=== PATIENT | male | born 1985 | race Caucasian/White ===

== ENCOUNTER → 2019-09-11 | Outpatient (REF) | payer OTHER ==
[~2019-09-11] MED LIST: ZYPR5TAB2 PO; no home meds
[2019-09-11 17:32] LABS: BLOOD UREA NITROGEN 10 MG/DL (7-18); CALCIUM LEVEL 9.2 MG/DL (8.5-10.1); CARBON DIOXIDE LEVEL 30 MEQ/L (21-32); CHLORIDE LEVEL 106 MEQ/L (98-107); CHOLESTEROL LEVEL 211 MG/DL (<200); CHOLESTEROL RISK RATIO 4.489 (<5); CREATININE FOR GFR 1.01 MG/DL (0.70-1.30); GLOMERULAR FILTRATION RATE > 60.0 (>60); GLUCOSE, FASTING 81 MG/DL (70-100); HDL CHOLESTEROL 47 MG/DL (>40); LDL CHOLESTEROL 131 MG/DL (<100); NON-HDL-C 164 MG/DL; POTASSIUM SERUM 4.3 MEQ/L (3.5-5.1); SODIUM LEVEL 142 MEQ/L (136-145); TRIGLYCERIDES LEVEL 167 MG/DL (<150)
[2019-09-12 10:21] LABS: HEPATITIS B SURFACE ANTIBODY NEGATIVE (POSITIVE)
[2019-09-12 10:31] LABS: HEPATITIS B SURFACE ANTIGEN NEGATIVE (NEGATIVE)
[2019-09-12 10:59] LABS: HEPATITIS C VIRUS ABY INDEX 0.1 INDEX (<0.8)
[2019-09-12 11:00] LABS: HIV 1&2 SCREEN CENTAUR NEGATIVE (NEGATIVE)
== END ==
LOC: M SFHCPLAZ 14:18
DX: Z13.1 Encounter for screening for diabetes mellitus (principal); Z13.220 Encounter for screening for lipoid disorders; Z11.59 Encounter for screening for other viral diseases

== ENCOUNTER 2019-11-07 01:02 | Inpatient (IN) | payer MEDICAID, OTHER ==
[~2019-11-07] VITALS: Ht 185.4 cm; Wt 88.0 kg
[2019-11-07 01:29] LABS: HEMATOCRIT 50.2 % (42.0-52.0); MEAN CORPUSCULAR HEMOGLOBIN 31.7 pg (27.0-33.0); MEAN CORPUSCULAR HGB CONC 33.9 g/dl (32.0-36.5); MEAN CORPUSCULAR VOLUME 93.7 fl (80.0-96.0); PLATELET COUNT, AUTOMATED 211 10^3/uL (150-450); RED BLOOD COUNT 5.36 10^6/uL (4.30-6.10); WHITE BLOOD COUNT 10.7 10^3/uL (4.0-10.0)
[2019-11-07 02:01] LABS: ACETAMINOPHEN LEVEL < 2.0 UG/ML (10.0-30.0); ALBUMIN 4.1 GM/DL (3.2-5.2); ALT/SGPT 16 U/L (12-78); BILIRUBIN,DIRECT 0.3 MG/DL (0.0-0.2); BILIRUBIN,TOTAL 1.2 MG/DL (0.2-1.0); BLOOD UREA NITROGEN 13 MG/DL (7-18); CALCIUM LEVEL 8.9 MG/DL (8.5-10.1); CARBON DIOXIDE LEVEL 25 MEQ/L (21-32); CHLORIDE LEVEL 105 MEQ/L (98-107); CREATININE FOR GFR 0.98 MG/DL (0.70-1.30); ETHYL ALCOHOL (ETHANOL) < 0.003 % (0.000-0.010); GLOMERULAR FILTRATION RATE > 60.0 (>60); GLUCOSE, FASTING 101 MG/DL (70-100); POTASSIUM SERUM 3.8 MEQ/L (3.5-5.1); SODIUM LEVEL 139 MEQ/L (136-145); TOTAL PROTEIN 7.8 GM/DL (6.4-8.2)
[2019-11-07 03:20] LABS: AMPHETAMINES LEVEL URINE NEGATIVE (NEGATIVE); BARBITURATES URINE NEGATIVE (NEGATIVE); BENZODIAZEPINES URINE NEGATIVE (NEGATIVE); CANNABINOIDS URINE NEGATIVE (NEGATIVE); COCAINE METABOLITE URINE NEGATIVE (NEGATIVE); METHADONE URINE NEGATIVE (NEGATIVE); OPIATES URINE NEGATIVE (NEGATIVE); PHENCYCLIDINE URINE NEGATIVE (NEGATIVE)
[2019-11-07] MEDS ORDERED: diphenhydrAMINE 25 MG CAP PO PRN (06:30)
[2019-11-07] MEDS ORDERED: MOM 30ML SUSPENSION UDC PO PRN (06:30)
[2019-11-07] MEDS ORDERED: MAALOX 30 ML SUSP *UDC PO PRN (06:30)
[2019-11-07] MEDS: PALIPERIDONE 3 MG ER TAB (INVEGA) PO SCH ×2 (09:00→21:00)
[2019-11-07 09:59] VITALS: BP 135/74
--- NOTE | 2019-11-07 10:18 | MHHPEPDOC ---
[facility] History & Physical History and Physical DATE OF ADMISSION: Nov 07, 2019 at 06:17 New Patient Greg Kaufman MRN: N/A Date of : N/A Date of Service: 11/07/2019 Chief Complaint "..." History of Present Illness The patient, a 34-year-old man with a reported history of schizophrenia, presents psychotic to the ER where he is aggressive and is overtly psychotic upon interview in the ER. He is admitted out of abundance of caution where subsequently he had reported that he felt he had a chip in his head and hears the voice of "Vitor talking to him." After we admitted him, he was fairly irritable, upset, was not sleeping and became increasingly aggressive. He needed multiple PRN medications and large amounts of sedation in order to get him under control. When I attempted to meet with him, he was sedated and asleep due to his agitation, but appeared comfortable. The majority of the information below is derived from the patient's chart and updated as appropriate. Review Of Systems Unable to ascertain due to patient's sedation. Past Psychiatric History Has a reported history of schizophrenia, has been admitted in the past to [facility], unclear if on any current medication or linked to any outpatient treatment, last reported admission was in 2013, unclear if any suicide attempts. Allergies Please see below. Family Psychiatric History In the past, reportedly has claimed mother's brother and father had mental health problems, reported that all of them do alcohol and smoke marijuana. No history of suicide reported. Social History The patient is a never man with no children that we are aware of. He is a high school graduate. Has conviction in the past for DUI. Has been incarcerated in 2012 for 5 months. Had a significant problem of using alcohol. It is unclear where he lives at this time. Substance Abuse History Has a history of alcohol use in the past as well as marijuana. His toxicology on this presentation revealed no cannabinoids or alcohol. Medical History Unclear recent medical history. Reportedly has a history of seizures and had head trauma. Mental Status Examination General: Good hygiene Speech: Not pleasant, sedated Thought processes: Unclear MSK: Smooth and coordinated gait, no signs of tremors or involuntary orofacial movements Thought content: Unclear Abstract reasoning, and computation: Unknown Description of associations: Unknown Description of abnormal or psychotic thoughts: Unknown Judgment: Unknown Insight: Unknown Orientation: Sedated and sleepy Cognition: Sedated Recent and remote memory: Unknown Attention span and concentration: Unknown Fund of knowledge: Unknown Mood: "..." Affect: Sedated and sleepy Diagnoses Unspecified psychotic disorder. Schizophrenia versus substance-induced. Alcohol use disorder, unspecified. Cannabis use disorder, unspecified. Assessment and Plan Unspecified psychotic disorder: Start Zyprexa 10 mg nightly for psychosis. Alcohol use disorder: We will continue to monitor vital signs. No alcohol on admission for any potential protracted withdrawal. Cannabis use disorder: Unclear significance at this time. Disposition The patient will need a much longer admission likely lasting longer than 2 midnights due to his severe psychosis, agitation and inability to care for self. Problem List 1. Altered thoughts. 2. Risk for aggression. Initial Treatment Plan 1. Patient was admitted on a 9.39 legal status. 2. Complete history was obtained. 3. With patients permission, family will be contacted and database will be expanded. 4. Patients medication regimen will be reviewed and changed accordingly. 5. Patient will be provided with protected environment. 6. Patient will be treated with individual, group, and milieu therapies. 7. Patient will receive supportive psych-education. 8. Discharge planning will commence immediately. 9. Outpatient follow-up treatment will be strongly recommended. 10. The initial treatment plan will focus initially on: Estimated Length Of Stay 5 days. Time Spent 70 minutes. Sunday Vital Signs Vital Signs Date Time Temp Pulse Resp B/P (MAP) Pulse Ox O2 Delivery O2 Flow Rate FiO2 11/07/19 09:59 98.6 91 18 135/74 (94) 99 Room Air Laboratory Data 24H Labs Laboratory Tests 2 11/07/19 01:17: Nucleated Red Blood Cells % (auto) 0.0, Anion Gap 9, Glomerular Filtration Rate > 60.0, Calcium Level 8.9, Total Bilirubin 1.2H, Direct Bilirubin 0.3H, Aspartate Amino Transf (AST/SGOT) 16, Alanine Aminotransferase (ALT/SGPT) 16, Alkaline Phosphatase 118H, Total Protein 7.8, Albumin 4.1, Albumin/Globulin Ratio 1.11, Thyroid Stimulating Hormone (TSH) 1.930, Salicylates Level 2.0L, Acetaminophen Level < 2.0L, Ethyl Alcohol Level < 0.003 11/07/19 02:47: Urine Opiates Screen NEGATIVE, Urine Methadone Screen NEGATIVE, Urine Barbiturates Screen NEGATIVE, Urine Phencyclidine Screen NEGATIVE, Urine Amphetamines Screen NEGATIVE, Urine Benzodiazepines Screen NEGATIVE, Urine C ocaine Metabolite Screen NEGATIVE, Urine Cannabinoids Screen NEGATIVE CBC/BMP Laboratory Tests 11/07/19 01:17 Medications No Active Prescriptions or Reported Meds Allergies Coded Allergies: No Known Allergies (Unverified , 12/18/13) COLIN ROTHMAN DO Nov 07, 2019 10:18
[2019-11-07] MEDS ORDERED: NICOTINE 21MG/24HR 1 EA TRANSDERMAL TD ONE (11:30)
[2019-11-07] MEDS: ACETAMINOPHEN TAB 650MG DOSE (2X325MG) PO PRN (11:56)
--- NOTE | 2019-11-07 13:41 | HPEPDOC ---
General Date of Admission Nov 07, 2019 at 06:17 Date of Service: Nov 07, 2018 Chief Complaint The patient is a 34-year-old male Who presented to the emergency room after he reported having a chip at the back of his head History of Present Illness Patient is a 34-year-old male with a past medical history of seizure disorders, etc. for any of bipolar disorder and questionable skin infections who presented to the emergency room after he reported that he had a chip inserted at the back of his head. Patient was adamant that he required an MRI to figure out if he had additional chips. When questioned about the placement of these devices. He noted that he had fallen secondary to a logging accident and had developed a scalp laceration at the back of his head and since that point. A microchip was implanted into his head so that he can be monitored. Currently patient has been admitted to the inpatient mental health unit under the care of psychiatry. Hospitalist service has been consultation for medical screening evaluation. Patient has reported that he does express a mild headache but denies nausea, vomiting, shortness of breath, cough, palpitations, chest pain, constipation, ur inary discomfort or any fevers or chills within the last 2 weeks. Patient has reported some diarrhea. Patient denies any change in his appetite or his weight. Home Medications No Active Prescriptions or Reported Meds Allergies Coded Allergies: No Known Allergies (Unverified , 12/18/13) Past Medical History Medical History Reported seizure history. However, does not take any medications for many years Schizophrenia and bipolar disorder Surgical History Patient denies any prior surgeries Family History - Patient is unfamiliar with his family history Social History - Denies the use of illicit drugs; patient does report that he is an active smoker and does drink alcohol socially - Denies recent travel or sick contacts; however, he has contacted Leon proximally 6 months prior - Lives alone - Occupation; currently unemployed and looking for disability Review of Systems Other systems 10 point review of systems complete, all negative otherwise stated in HPI Vital Signs - Vitals: BP 135/74, HR 91, RR 18, Sat 99%RA, Temp 98.6F - General: Lying in bed, No acute distress, Speaking in full sentences, AAOx3 - HEENT: NC, AT, PERRLA, EOMI, no pharyngeal erythema is noted - CVS: RRR, +S1S2, - Murmurs / rubs / gallops - Lungs: Fair air entry bilaterally, No appreciable wheezing / rales / rhonchi - Abdomen: Soft, Non-distended, Non-tender - : No rashes on his scrotum is noted - Extremities: No lower extremity edema, No calf tenderness - Neuro: No focal motor or sensory deficit - Skin: Multiple skin lesions, appear scab like - no evidence of drainage or active infection Laboratory Data Labs 24H Laboratory Tests 2 11/07/19 01:17: Nucleated Red Blood Cells % (auto) 0.0, Anion Gap 9, Glomerular Filtration Rate > 60.0, Calcium Level 8.9, Total Bilirubin 1.2H, Direct Bilirubin 0.3H, Aspartate Amino Transf (AST/SGOT) 16, Alanine Aminotransferase (ALT/SGPT) 16, Alkaline Phosphatase 118H, Total Protein 7.8, Albumin 4.1, Albumin/Globulin Ratio 1.11, Thyroid Stimulating Hormone (TSH) 1.930, Salicylates Level 2.0L, Acetaminophen Level < 2.0L, Ethyl Alcohol Level < 0.003 11/07/19 02:47: Urine Opiates Screen NEGATIVE, Urine Methadone Screen NEGATIVE, Urine Barbiturates Screen NEGATIVE, Urine Phencyclidine Screen NEGATIVE, Urine Amphetamines Screen NEGATIVE, Urine Benzodiazepines Screen NEGATIVE, Urine Cocaine Metabolite Screen NEGATIVE, Urine Cannabinoids Screen NEGATIVE CBC/BMP Laboratory Tests 11/07/19 01:17 Plan / VTE VTE Prophylaxis Ordered?: Yes Plan Plan Schizophrenia and bipolar disorder - Patient has presented to the emergency room after reporting that he had a microchip placed in the back of his head - Patient has been admitted to the inpatient mental health unit under the care of psychiatry - This is currently being managed by the primary psychiatric team Reported skin infection / Pore infections - Currently, there are multiple areas on his body with small scab-like lesions; none of which appear to be actively infected - Patient is hemodynamically stable and afebrile - Mild leukocytosis is noted - Currently no antibiotics are indicated at this point History of seizures - Patient has not taken any antibiotics for several years Mild elevation of bilirubin - Patient will require outpatient follow-up with his primary care provider for further evaluation, if this does not normalize DVT prophylaxis - Continue with early ambulation Female manager of marketing was present for the duration of his history and physical examination Please reconsult hospitalist service as needed NAHUN GERARD MD Nov 07, 2019 13:41
[2019-11-07] MEDS ORDERED: LORazepam 2 MG TAB PO ONE (14:00)
[2019-11-07] MEDS ORDERED: diphenhydrAMINE 50 MG CAP PO ONE (14:00)
[2019-11-07] MEDS ORDERED: diphenhydrAMINE 50 MG CAP PO PRN (14:01)
[2019-11-08 06:24] VITALS: BP 124/73
[2019-11-08] MEDS: NICOTINE 21MG/24HR 1 EA TRANSDERMAL TD SCH ×2 (09:00→15:27)
[2019-11-08] MEDS: PALIPERIDONE 3 MG ER TAB (INVEGA) PO SCH ×2 (09:00→20:15)
[2019-11-08 15:59] VITALS: BP 110/69
[2019-11-08] MEDS: traZODone 50 MG TAB PO PRN (20:13)
[2019-11-08] MEDS: OLANZapine 10 MG TAB PO SCH (20:13)
--- NOTE | 2019-11-08 21:13 | MHIPN ---
DATE: 11/08/2019 The patient today states that he is fine. I tried to assess to see if he had any ongoing paranoid delusions but he basically denied it and really did not respond much to most of my questions. MENTAL STATUS EXAMINATION: The patient is alert but again I am not really able to assess his orientation further as he does not really fully answer my questions other than to say that his mood is fine. His affect is flat. There is no formal thought disorder noted. He did not voice any suicidal or homicidal ideations. Concentration is fair. Unable to test memory. Insight and judgment poor. Diagnoses Unspecified psychotic disorder. Schizophrenia versus substance-induced. Alcohol use disorder, unspecified. Cannabis use disorder, unspecified. TREATMENT PLAN: At this point, we will continue to monitor the patient for his ongoing paranoid delusions. Later on he did come up to me and ask me if I was the one that could order an MRI of his brain, and according to the records this is what he wants because he feels that he has a chip implanted into his brain so clearly he remains psychotic. We will continue to monitor the patient for any ongoing psychotic symptoms and continue his medications and titrate them as indicated. KEENAN
[2019-11-09 06:19] VITALS: BP 117/62
[2019-11-09] MEDS: NICOTINE 21MG/24HR 1 EA TRANSDERMAL TD SCH (08:11)
[2019-11-09] MEDS: PALIPERIDONE 3 MG ER TAB (INVEGA) PO SCH ×2 (08:11→21:00)
[2019-11-09 15:56] VITALS: BP 119/69
--- NOTE | 2019-11-09 20:18 | MHIPN ---
DATE: 11/09/2019 The patient today continues to say that he has no problems. He continues to have no insight about his illness. He is very guarded, but I suspect that he has ongoing delusions. MENTAL STATUS EXAMINATION: He is alert and oriented times three. He will respond to superficial questions but is very guarded. Eye contact is fair. There is no formal thought disorder noted. He says his mood is fine. Affect is flat. I suspect that he is still quite delusional. Concentration is fair. Memory intact. Insight and judgment poor. Diagnoses Unspecified psychotic disorder. Schizophrenia versus substance-induced. Alcohol use disorder, unspecified. Cannabis use disorder, unspecified. TREATMENT PLAN: We will continue to monitor the patient for continued psychotic symptoms and titrate medications as indicated. EDWARDOD
[2019-11-09] MEDS: OLANZapine 10 MG TAB PO SCH (20:53)
[2019-11-09] MEDS: traZODone 50 MG TAB PO PRN (20:53)
[2019-11-09] MEDS: haloperidoL 5 MG TAB PO PRN (23:13)
[2019-11-10] MEDS ORDERED: LORazepam 2 MG TAB PO ONE ×2 (00:15→02:35)
[2019-11-10] MEDS ORDERED: haloperidoL 5 MG TAB PO ONE ×2 (00:15→02:35)
[2019-11-10] MEDS ORDERED: diphenhydrAMINE 50 MG CAP PO ONE ×2 (00:15→02:35)
[2019-11-10 06:19] VITALS: BP 126/69
[2019-11-10] MEDS: NICOTINE 21MG/24HR 1 EA TRANSDERMAL TD SCH ×2 (09:00→18:53)
[2019-11-10] MEDS: PALIPERIDONE 3 MG ER TAB (INVEGA) PO SCH (09:00)
--- NOTE | 2019-11-10 10:40 | MHIPNPDOC ---
[facility] Progress Note Progress Note Inpatient Progress Note Greg Kaufman MRN: N/A Date of : N/A Date of Service: 11/10/2019 History of Present Illness The patient, a 34-year-old man with a reported history of schizophrenia, presents psychotic to the ER where he is aggressive and is overtly psychotic upon interview in the ER. He is admitted out of abundance of caution where subsequently he had reported that he felt he had a chip in his head and hears the voice of "Vitor talking to him." After we admitted him, he was fairly irritable, upset, was not sleeping and became increasingly aggressive. He needed multiple PRN medications and large amounts of sedation in order to get him under control. When I attempted to meet with him, he was sedated and asleep due to his agitation, but appeared comfortable. The majority of the information below is derived from the patient's chart and updated as appropriate. Interval History The patient is attempted to be met with today. He is very sedated from taking medications last night. He has met with briefly as he is quite tired. He still maintains that he has a "chip in his head" and that he "wants to dig it out." He has not had any agitation and has been improving in terms of his ability to interact with staff, although he is still quite isolative to his room. He has been taking the Haldol willingly but not the Invega. The patient has not been to any groups but otherwise appears to be cooperating on a basic sense with treatment. He is quite sleepy on this interview and further pushing is likely unhelpful for him. Over the previous evening, he was given medication in order to help sleep as he had been awake at night. Review Of Systems Unclear. Denies any sedation from his medications. Psychotherapy None on this visit. Vital Signs Reviewed. Mental Status Examination General: Fair hygiene. Speech: Fluid. Thought processes: Appears linear. MSK: Smooth and coordinated gait, no signs of tremors or involuntary orofacial movements Thought content: Continues to have delusion. Abstract reasoning, and computation: Impaired. Description of associations: Impaired. Description of abnormal or psychotic thoughts: Denies any suicidal or homicidal ideation. Denies any auditory or visual hallucinations. Does not appear to be responding to internal stimuli. Does not appear to be endorsing any bizarre or paranoid ideation. Judgment: Impaired. Insight: Impaired. Orientation: Sleepy, but orientated to setting. Cognition: Sleepy. Recent and remote memory: Intact Attention span and concentration: Intact Fund of knowledge: Adequate Mood: "okay" Affect: Flat with little range. Diagnoses Unspecified psychotic disorder. History of TBI. Cannabis use disorder. Assessment and Plan Unspecified psychotic disorder: Discontinue olanzapine and Invega as the patient is not taking them. Start Haldol 10 mg nightly. Disposition The patient will need a further inpatient admission in order to continue treating his psychotic symptoms to the point where he is no longer gravely disabled. Time Spent 15 minutes Sunday Vital Signs Vital Signs Date Time Temp Pulse Resp B/P (MAP) Pulse Ox O2 Delivery O2 Flow Rate FiO2 11/10/19 06:19 98.1 59 16 126/69 (88) Room Air 11/07/19 09:59 99 Current Medications Current Medications Medications (Trade) Dose Ordered Sig/Cruzito Route PRN Reason Start Time Stop Time Status Last Admin Dose Admin Acetaminophen (Tylenol Tab) 650 mg Q6HP PRN PO HEADACHE or DISCOMFORT 11/07/19 06:30 11/07/19 11:56 Al Hydrox/Mg Hydrox/Simethicone (Mylanta) 30 ml Q4HP PRN PO HEARTBURN/INDIGESTION 11/07/19 06:30 Diphenhydramine HCl (Benadryl) 50 mg BID PRN PO EPS from Haldol 11/07/19 06:30 11/07/19 14:01 DC Diphenhydramine HCl (Benadryl) 50 mg BID PRN PO EPS from Haldol 11/07/19 14:01 Haloperidol (Haldol) 5 mg Q6HP PRN PO ANXIETY/AGITATION 11/07/19 06:30 11/09/19 23:13 Home Med (Med Rec Complete!) ASDIRECTED XX 11/07/19 05:45 11/07/19 05:53 DC Magnesium Hydroxide (Milk Of Magnesia) 30 ml DAILYPRN PRN PO CONSTIPATION 11/07/19 06:30 Nicotine (Nicoderm Cq 21mg) 1 patch DAILY TD 11/08/19 09:00 11/09/19 08:11 Olanzapine (ZyPREXA) 10 mg QHS PO 11/08/19 21:00 11/09/19 20:53 Paliperidone (Invega) 3 mg BID PO 11/07/19 09:00 Trazodone HCl (Desyrel) 50 mg QHSP PRN PO INSOMNIA 11/07/19 06:30 11/09/19 20:53 Allergies Coded Allergies: No Known Allergies (Unverified , 12/18/13) COLIN ROTHMAN DO Nov 10, 2019 10:40
[2019-11-10] MEDS: traZODone 50 MG TAB PO PRN (20:52)
[2019-11-10] MEDS: ACETAMINOPHEN TAB 650MG DOSE (2X325MG) PO PRN (21:07)
[2019-11-11] MEDS ORDERED: traZODone 50 MG TAB PO ONE (00:30)
[2019-11-11] MEDS ORDERED: haloperidoL 5 MG TAB PO ONE (01:45)
[2019-11-11] MEDS ORDERED: diphenhydrAMINE 50 MG CAP PO ONE (01:45)
[2019-11-11] MEDS ORDERED: LORazepam 2 MG TAB PO ONE (01:45)
[2019-11-11] MEDS: ACETAMINOPHEN TAB 650MG DOSE (2X325MG) PO PRN ×2 (01:57→20:43)
[2019-11-11 06:43] VITALS: BP 128/73
[2019-11-11] MEDS: NICOTINE 21MG/24HR 1 EA TRANSDERMAL TD SCH (09:14)
--- NOTE | 2019-11-11 11:05 | MHIPNPDOC ---
[facility] Progress Note Progress Note Inpatient Progress Note Greg Kaufman MRN: N/A Date of : N/A Date of Service: 11/11/2019 History of Present Illness The patient, a 34-year-old man with a reported history of schizophrenia, presents psychotic to the ER where he is aggressive and is overtly psychotic upon interview in the ER. He is admitted out of abundance of caution where subsequently he had reported that he felt he had a chip in his head and hears the voice of "Vitor talking to him." After we admitted him, he was fairly irritable, upset, was not sleeping and became increasingly aggressive. He needed multiple PRN medications and large amounts of sedation in order to get him under control. When I attempted to meet with him, he was sedated and asleep due to his agitation, but appeared comfortable. The majority of the information below is derived from the patient's chart and updated as appropriate. Interval History The patient is met with today, he is much more amenable, less paranoid and is able to speak to me more at length. He is amenable to the description of schizophrenia describing that he does have times where he feels scared of others and somewhat paranoid, but he has been feeling better since he started the Mensah ldol. He reports that although he feels he has an "chip in his head" that he would have no intentions of removing it himself and that he is interested in an outpatient MRI to determine if there is something there. He appears to have some improved insight where he is less focused on the delusion and has become more amenable. He has had no behavioral problems overnight, although he does have some difficulty sleeping, which has been better addressed. He still remains isolative to his room. Review Of Systems Cardiovascular: Denies Chest pain or palpations GI: Denies Nausea, vomiting, or bowel changes Respiratory: Denies shortness of breath or cough Neuro: Denies dizziness, tremors Derm: Denies any rashes or pruritus : Denies any dysuria or urinary problems MSK: Denies any muscle tightness or stiffness Psychotherapy None on this visit. Vital Signs Reviewed. Mental Status Examination General: Well dressed with good hygiene Speech: More fluid Thought processes: Linear and logical MSK: Smooth and coordinated gait, no signs of tremors or involuntary orofacial movements Thought content: Less paranoid. Abstract reasoning, and computation: Improved. Description of associations: Improved. Description of abnormal or psychotic thoughts: Denies any suicidal or homicidal ideation. Denies any auditory or visual hallucinations. Does not appear to be responding to internal stimuli. Does not appear to be endorsing any bizarre or paranoid ideation. Judgment: Improved. Insight: Improved. Orientation: Alert and orientated 3 Cognition: Grossly normal Recent and remote memory: Intact Attention span and concentration: Intact Fund of knowledge: Adequate Mood: "okay" Affect: More euthymic. Diagnoses Unspecified psychotic disorder. History of TBI. Cannabis use disorder. Assessment and Plan Unspecified psychotic disorder: Continue Haldol 10 mg nightly. History of TBI: Recommend outpatient neuropsych testing. Cannabis use disorder: Potentially a provoking cause for his presentation. Disposition The patient will be observed for 2 more days and change of medications, potential discharge on if continues improvement. Time Spent 15 minutes [id number]. Sunday Vital Signs Vital Signs Date Time Temp Pulse Resp B/P (MAP) Pulse Ox O2 Delivery O2 Flow Rate FiO2 11/11/19 06:43 98.6 79 12 128/73 (91) Room Air 11/07/19 09:59 99 Current Medications Current Medications Medications (Trade) Dose Ordered Sig/Cruzito Route PRN Reason Start Time Stop Time Status Last Admin Dose Admin Acetaminophen (Tylenol Tab) 650 mg Q6HP PRN PO HEADACHE or DISCOMFORT 11/07/19 06:30 11/11/19 01:57 Al Hydrox/Mg Hydrox/Simethicone (Mylanta) 30 ml Q4HP PRN PO HEARTBURN/INDIGESTION 11/07/19 06:30 Diphenhydramine HCl (Benadryl) 50 mg BID PRN PO EPS from Haldol 11/07/19 06:30 11/07/19 14:01 DC Diphenhydramine HCl (Benadryl) 50 mg BID PRN PO EPS from Haldol 11/07/19 14:01 Haloperidol (Haldol) 5 mg Q6HP PRN PO ANXIETY/AGITATION 11/07/19 06:30 11/09/19 23:13 Haloperidol (Haldol) 10 mg QHS PO 11/10/19 21:00 11/10/19 20:52 Home Med (Med Rec Complete!) ASDIRECTED XX 11/07/19 05:45 11/07/19 05:53 DC Magnesium Hydroxide (Milk Of Magnesia) 30 ml DAILYPRN PRN PO CONSTIPATION 11/07/19 06:30 Nicotine (Nicoderm Cq 21mg) 1 patch DAILY TD 11/08/19 09:00 11/11/19 09:14 Olanzapine (ZyPREXA) 10 mg QHS PO 11/08/19 21:00 11/10/19 15:57 DC 11/09/19 20:53 Paliperidone (Invega) 3 mg BID PO 11/07/19 09:00 11/10/19 15:57 DC Trazodone HCl (Desyrel) 50 mg QHSP PRN PO INSOMNIA 11/07/19 06:30 11/10/19 20:52 Allergies Coded Allergies: No Known Allergies (Unverified , 12/18/13) COLIN ROTHMAN DO Nov 11, 2019 11:05
[2019-11-11 16:32] VITALS: BP 120/62
[2019-11-11] MEDS: RAMELTEON 8 MG TAB (ROZEREM) PO SCH (20:18)
[2019-11-11] MEDS: traZODone 50 MG TAB PO PRN (20:18)
[2019-11-12 06:36] VITALS: BP 132/97
[2019-11-12] MEDS: NICOTINE 21MG/24HR 1 EA TRANSDERMAL TD SCH (08:17)
--- NOTE | 2019-11-12 11:03 | MHIPNPDOC ---
[facility] Progress Note Progress Note Inpatient Progress Note Greg Kaufman MRN: N/A Date of : N/A Date of Service: 11/12/2019 History of Present Illness The patient, a 34-year-old man with a reported history of schizophrenia, presents psychotic to the ER where he is aggressive and is overtly psychotic upon interview in the ER. He is admitted out of abundance of caution where subsequently he had reported that he felt he had a chip in his head and hears the voice of "Vitor talking to him." After we admitted him, he was fairly irritable, upset, was not sleeping and became increasingly aggressive. He needed multiple PRN medications and large amounts of sedation in order to get him under control. When I attempted to meet with him, he was sedated and asleep due to his agitation, but appeared comfortable. The majority of the information below is derived from the patient's chart and updated as appropriate. Interval History The patient is met with today. He is increasingly getting better with no noted paranoid ideation today. He has been tolerating the medication well, reporting that the Rozerem is helpful for his sleep. He has had no major behavioral problems and has been attending groups, much more social on the unit, walking around. He reports he does have a history of TBI and wonders if some of his thoughts might be attributed to this. He has not made any unusual statement so far today and has been doing well overall, preparing for discharge tomorrow. Review Of Systems Cardiovascular: Denies chest pain or palpitations GI: Denies Nausea, vomiting, or bowel changes Respiratory: Denies shortness of breath or cough Neuro: Denies dizziness, tremors Derm: Denies any rashes or pruritus : Denies any dysuria or urinary problems MSK: Denies any muscle tightness or stiffness Psychotherapy None on this visit. Vital Signs Reviewed. Mental Status Examination General: Well dressed with good hygiene Speech: Spontaneous and fluid Thought processes: Linear and logical MSK: Smooth and coordinated gait, no signs of tremors or involuntary orofacial movements Thought content: Future orientated Abstract reasoning, and computation: Intact Description of associations: Intact Description of abnormal or psychotic thoughts: Denies any suicidal or homicidal ideation. Denies any auditory or visual hallucinations. Does not appear to be responding to internal stimuli. Does not appear to be endorsing any bizarre or paranoid ideation. Judgment: fair Insight: fair Orientation: Alert and orientated 3 Cognition: Grossly normal Recent and remote memory: Intact Attention span and concentration: Intact Fund of knowledge: Adequate Mood: "okay" Affect: Euthymic with a full range Diagnoses Unspecified psychotic disorder. History of TBI. Cannabis use disorder. Assessment and Plan Unspecified psychotic disorder: Continue Haldol 10 mg nightly. History of TBI: Recommend outpatient neuropsych testing. Cannabis use disorder: Potentially a provoking cause for his presentation. Disposition Discharge tomorrow. Time Spent 15 minutes [id number]. Sunday Vital Signs Vital Signs Date Time Temp Pulse Resp B/P (MAP) Pulse Ox O2 Delivery O2 Flow Rate FiO2 11/12/19 06:36 97.0 89 16 132/97 (109) 11/11/19 06:43 Room Air 11/07/19 09:59 99 Current Medications Current Medications Medications (Trade) Dose Ordered Sig/Cruzito Route PRN Reason Start Time Stop Time Status Last Admin Dose Admin Acetaminophen (Tylenol Tab) 650 mg Q6HP PRN PO HEADACHE or DISCOMFORT 11/07/19 06:30 11/11/19 20:43 Al Hydrox/Mg Hydrox/Simethicone (Mylanta) 30 ml Q4HP PRN PO HEARTBURN/INDIGESTION 11/07/19 06:30 Diphenhydramine HCl (Benadryl) 50 mg BID PRN PO EPS from Haldol 11/07/19 06:30 11/07/19 14:01 DC Diphenhydramine HCl (Benadryl) 50 mg BID PRN PO EPS from Haldol 11/07/19 14:01 Haloperidol (Haldol) 5 mg Q6HP PRN PO ANXIETY/AGITATION 11/07/19 06:30 11/09/19 23:13 Haloperidol (Haldol) 10 mg QHS PO 11/10/19 21:00 11/11/19 20:18 Home Med (Med Rec Complete!) ASDIRECTED XX 11/07/19 05:45 11/07/19 05:53 DC Magnesium Hydroxide (Milk Of Magnesia) 30 ml DAILYPRN PRN PO CONSTIPATION 11/07/19 06:30 Nicotine (Nicoderm Cq 21mg) 1 patch DAILY TD 11/08/19 09:00 11/12/19 08:17 Olanzapine (ZyPREXA) 10 mg QHS PO 11/08/19 21:00 11/10/19 15:57 DC 11/09/19 20:53 Paliperidone (Invega) 3 mg BID PO 11/07/19 09:00 11/10/19 15:57 DC Ramelteon (Rozerem) 8 mg QHS PO 11/11/19 21:00 11/11/19 20:18 Trazodone HCl (Desyrel) 50 mg QHSP PRN PO INSOMNIA 11/07/19 06:30 11/11/19 20:18 Allergies Coded Allergies: No Known Allergies (Unverified , 12/18/13) COLIN ROTHMAN DO Nov 12, 2019 11:03
[2019-11-12 16:18] VITALS: BP 112/76
[2019-11-12] MEDS: RAMELTEON 8 MG TAB (ROZEREM) PO SCH (20:09)
[2019-11-12] MEDS: traZODone 50 MG TAB PO PRN (20:10)
[2019-11-12] MEDS: ACETAMINOPHEN TAB 650MG DOSE (2X325MG) PO PRN (22:49)
[2019-11-12] MEDS: haloperidoL 5 MG TAB PO PRN (22:52)
[2019-11-13] MEDS ORDERED: traZODone 50 MG TAB PO ONE
[2019-11-13 05:49] VITALS: BP 120/72
[2019-11-13] MEDS: NICOTINE 21MG/24HR 1 EA TRANSDERMAL TD SCH (09:00)
--- NOTE | 2019-11-13 10:13 | MHDSPDOC ---
[facility] Discharge Summary Discharge Summary DATE OF ADMISSION: Nov 07, 2019 at 06:17 DATE OF DISCHARGE: 11/13/19 Discharge Greg Kaufman MRN: N/A Date of : N/A Date of Service: 11/13/2019 Diagnoses Unspecified psychotic disorder. History of TBI. Cannabis use disorder. History of Present Illness The patient, a 34-year-old man with a reported history of schizophrenia, presents psychotic to the ER where he is aggressive and is overtly psychotic upon interview in the ER. He is admitted out of abundance of caution where subsequently he had reported that he felt he had a chip in his head and hears the voice of "Vitor talking to him." After we admitted him, he was fairly irritable, upset, was not sleeping and became increasingly aggressive. He needed multiple PRN medications and large amounts of sedation in order to get him under control. When I attempted to meet with him, he was sedated and asleep due to his agitation, but appeared comfortable. The majority of the information below is derived from the patient's chart and updated as appropriate. Consultants Involved Hospitalist/PCP screening Treatment and Progress On The Unit The patient was admitted to the inpatient mental health unit, initially somewhat paranoid, agitated and was not sleeping. He has a history of TBI and cannabis use and reported history of schizophrenia. However, after some time and multiple as-needed medications, primarily Haldol, the patient began to become more insightful, more agreeable and was isolative at times to his room, however, after speaking to him and discussing with him the issues at play, he became much more amenable, social on the unit. He was observed for 2 days, continued on Haldol 10 mg nightly as well as Rozerem for his sleep patterns of which he responded to very well. He did display some mild signs of a TBI with some mildly slowed cognition, but it did not appear clinically significant. The patient had done well on the unit, became increasingly social, amenable, went to a few groups and was no longer threatening towards himself or anyone else and amenable to all staff interventions. He had requested to go. He initially, when he presented, thought that he had a "brain chip" and was quite adamant that he wanted to have it "cut out" or he would "cut it out himself." As he progressed over his admission, he became much less paranoid, much more amenable and although he did have some mild unusual belief at the end about this reported "brain chip," he reported he wanted to have an MRI, but would go to a physician for it and if the MRI did not show anything that he would not pursue it further, demonstrating a much improved insight from when he arrived. Discharge Assessment 34-year-old man with a history of reported schizophrenia, TBI and cannabis use, however, after observation on the unit, his psychosis resolved precipitously with a small amount of Haldol and Rozerem, likely indicating potentially drug induced/cannabis related paranoia. He initially presents thinking he has a "brain chip," however, after a very mild intervention his insight improved greatly where he no longer endorses the ideation very significantly. He requests to go and declines further voluntary admission. On the day of discharge, he did not meet involuntary criteria as he had been denying suicidal and homicidal ideation through his admission, his insight improved greatly to a normal mental status exam, he was cooperative with discharge, friendly, engaged on the unit and did not demonstrate any significant impairment by the time of discharge in his overall ability to function and thus was discharged in good harpreet. Mental Status Examination General: Well dressed with good hygiene Speech: Spontaneous and fluid Thought processes: Linear and logical MSK: Smooth and coordinated gait, no signs of tremors or involuntary orofacial movements Thought content: Future orientated Abstract reasoning, and computation: Intact Description of associations: Intact Description of abnormal or psychotic thoughts: Denies any suicidal or homicidal ideation. Denies any auditory or visual hallucinations. Does not appear to be responding to internal stimuli. Does not appear to be endorsing any bizarre or paranoid ideation. Judgment: fair Insight: fair Orientation: Alert and orientated 3 Cognition: Grossly normal Recent and remote memory: Intact Attention span and concentration: Intact Fund of knowledge: Adequate Mood: "okay" Affect: Euthymic with a full range Follow Up The social work team worked during the predischarge meeting in order to evaluate for further issues of lethality address them fully before discharge. They worked on safety planning with the patient's family members in order to ensure that the patient will have a safe and effective discharge. Time Spent The amount of time spent in the coordination of care for this patient was approximately 60 minutes. Vital Signs/I&Os Vital Signs Date Time Temp Pulse Resp B/P (MAP) Pulse Ox O2 Delivery O2 Flow Rate FiO2 11/13/19 05:49 98.4 80 16 120/72 (88) 11/11/19 06:43 Room Air 11/07/19 09:59 99 Medications Scheduled Haloperidol (Haloperidol) 10 Mg Tablet, 10 MG PO QHS for thoughts for 7 Days, #7 Melatonin (Melatonin) 3 Mg Tab.rapdis, 1 TAB PO QPM for sleep for 30 Days, #30 Allergies Coded Allergies: No Known Allergies (Unverified , 12/18/13) COLIN ROTHMAN DO Nov 13, 2019 10:13
[2019-11-13] MEDS ORDERED: MELA3TAB49 PO (10:27)
[2019-11-13] MEDS ORDERED: HALO10TA20 PO (10:27)
== END 2019-11-13 13:15 | disposition home or self-care (01) | DRG 751 ==
LOC: M ED 01:02 → M ED INP 06:17 → M PSY 09:35
PROVIDERS: ADMIT Psychiatry & Neurology Psychiatry; ATTEND Psychiatry & Neurology Addiction Medicine
DX: F29 Unspecified psychosis not due to a substance or known physiological condition (principal); G40.909 Epilepsy, unspecified, not intractable, without status epilepticus; F12.90 Cannabis use, unspecified, uncomplicated; Z79.899 Other long term (current) drug therapy

== ENCOUNTER 2020-01-06 12:13 | Inpatient (IN) | payer MEDICAID, OTHER ==
[~2020-01-06 12:13] MED LIST changes: +HALO10TA20 PO; +MELA3TAB49 PO
[2020-01-06] MEDS ORDERED: HALOPERIDOL 5 MG/ML VIAL (J1630) IM ONE (12:30)
[2020-01-06] MEDS ORDERED: LORazepam 2 MG/ML VIAL (J2060) IM ONE (12:30)
[2020-01-06 14:00] LABS: MEAN CORPUSCULAR HEMOGLOBIN 31.8 pg (27.0-33.0); MEAN CORPUSCULAR HGB CONC 35.4 g/dl (32.0-36.5); MEAN CORPUSCULAR VOLUME 89.7 fl (80.0-96.0); PLATELET COUNT, AUTOMATED 300 10^3/uL (150-450); RED BLOOD COUNT 5.35 10^6/uL (4.30-6.10); WHITE BLOOD COUNT 8.1 10^3/uL (4.0-10.0)
[2020-01-06 14:32] LABS: ALBUMIN 4.2 GM/DL (3.2-5.2); ALT/SGPT 25 U/L (12-78); BILIRUBIN,DIRECT 0.5 MG/DL (0.0-0.2); BILIRUBIN,TOTAL 1.7 MG/DL (0.2-1.0); BLOOD UREA NITROGEN 13 MG/DL (7-18); CALCIUM LEVEL 9.6 MG/DL (8.5-10.1); CARBON DIOXIDE LEVEL 25 MEQ/L (21-32); CHLORIDE LEVEL 104 MEQ/L (98-107); CREATININE FOR GFR 0.84 MG/DL (0.70-1.30); ETHYL ALCOHOL (ETHANOL) < 0.003 % (0.000-0.010); GLOMERULAR FILTRATION RATE > 60.0 (>60); GLUCOSE, FASTING 91 MG/DL (70-100); POTASSIUM SERUM 4.3 MEQ/L (3.5-5.1); SALICYLATE LEVEL 3.1 MG/DL (5.0-30.0); SODIUM LEVEL 136 MEQ/L (136-145); TOTAL PROTEIN 7.7 GM/DL (6.4-8.2)
[2020-01-06 14:33] LABS: ACETAMINOPHEN LEVEL < 2.0 UG/ML (10.0-30.0)
[2020-01-06 15:47] LABS: AMPHETAMINES LEVEL URINE NEGATIVE (NEGATIVE); BARBITURATES URINE NEGATIVE (NEGATIVE); BENZODIAZEPINES URINE NEGATIVE (NEGATIVE); CANNABINOIDS URINE POSITIVE (NEGATIVE); COCAINE METABOLITE URINE NEGATIVE (NEGATIVE); METHADONE URINE NEGATIVE (NEGATIVE); OPIATES URINE NEGATIVE (NEGATIVE); PHENCYCLIDINE URINE NEGATIVE (NEGATIVE)
[2020-01-06] MEDS ORDERED: SUMA100T2 PO (16:38)
[2020-01-06] MEDS ORDERED: OLANZapine 5 MG TAB PO PRN (17:45)
[2020-01-06] MEDS ORDERED: MAALOX 30 ML SUSP *UDC PO PRN (17:45)
[2020-01-06] MEDS ORDERED: ACETAMINOPHEN TAB 650MG DOSE (2X325MG) PO PRN (17:45)
[2020-01-06] MEDS ORDERED: MOM 30ML SUSPENSION UDC PO PRN (17:45)
[2020-01-06 19:22] VITALS: BP 122/77
--- NOTE | 2020-01-07 12:59 | HPEPDOC ---
General Date of Admission Jan 06, 2020 at 17:35 Date of Service: Jan 07, 2020 Chief Complaint The patient is a 34-year-old male admitted with a reason for visit of Other Schizophrenic Spectrum D/O And Tbi. Source: Patient Exam Limitations: Clinical conditions Associated Symptoms: Rash, Other (tooth problems) History of Present Illness Mr. Kaufman is a 34-year-old male who is admitted to the [facility] with diagnoses of a deteriorating mental health status 2/2 schizophrenia. The exam is somewhat limited as the patient is slightly suspicious of me. When asked Mr. Kaufman stated that he is here because of the pins in his head. He reported that they have been there for very long time now. He is also concerned as he has what he states is a 'pore infection'; he points to what appears to be a folliculitis on bilateral arms. He is also very worried that the pore infection has spread to his cheek and jaw. He mentions that someone has told him that the infection in his mouth could spread to his heart and kill him. I gather that he has very poor dentition. There are several rounded teeth on the left side of the mouth; he denies receiving any treatment or follow-up outpatient. Home Medications Scheduled PRN Sumatriptan Succinate (Sumatriptan Succinate) 100 Mg Tablet, 100 MG PO ASDI RECTED PRN for MIGRAINE, (Reported) may repeat in 2 hours; do not exceed 200 mg in 24 hours Allergies Coded Allergies: No Known Allergies (Unverified , 12/18/13) Past Medical History Medical History From the medical records, Schizophrenia and bipolar disorder Surgical History Denied Family History Unknown Social History * Smoker: Denies Alcohol: Denies Drugs: denies A-FIB/CHADSVASC A-FIB History Current/History of A-Fib/PAF?: No Current PO Anticoag Therapy: No Review of Systems Constitutional: Denies: Chills, Fever, Night Sweats Eyes: Denies: Pain, Vision change ENT: Denies: Head Aches, Ear Pain, Dysphagia Skin: Reports: Lesions, Itching; Denies: Rash Pulmonary: Denies: Dyspnea, Cough Cardiovascular: Denies: Chest Pain, Palpitations, Orthopnea, Paroxysmal Noc. D yspnea, Edema, Lt Headedness Gastrointestinal: Denies: Nausea, Vomiting, Abdominal Pain, Diarrhea Genitourinary: Denies: Dysuria, Retention Hematologic: Reports: Bleeding Excessively; Denies: Bruising Musculoskeletal: Denies: Neck Pain, Back Pain, Joint Pain, Muscle Pain, Spasms Neurological: Denies: Weakness, Numbness Psych: Denies: Thoughts of Self Harm, Thoughts of Harming Other Physical Examination General Exam: Positive: Alert, No Acute Distress, Other (appears much older than stated age) Eye Exam: Positive: PERRLA, Conjunctiva & lids normal, EOMI; Negative: Sclera icteric ENT Exam: Positive: Atraumatic, Mucous membr. moist/pink, Pharynx Normal, Tongue Midline, Other ENT (2 Damaged, decayed teeth on the left lower jaw. Patient reported that these are painful. Gums are very inflamed. Halitosis) Neck Exam: Positive: Supple; Negative: thyromegaly Chest Exam: Positive: Clear to auscultation, Normal air movement Heart Exam: Positive: Rate Normal, Regular Rhythm, Normal S1, Normal S2; Negative: Murmurs, Rubs Telemetry: Positive: No significant arrhythmia Abdomen Exam: Positive: Normal bowel sounds, Soft; Negative: Tenderness Extremity Exam: Positive: Normal pulses; Negative: Clubbing, Cyanosis, Edema Skin Exam: Positive: Nl turgor and temperature, Rash (folliculitis, sparse, bilateral arms) Neuro Exam: Positive: Normal Gait, Normal Speech, Strength at 5/5 X4 ext, Cranial Nerves 3-12 NL Psych Exam: Negative: Mood NL (very guarded, suspicious) Vital Signs Vital Signs Date Time Temp Pulse Resp B/P (MAP) Pulse Ox O2 Delivery O2 Flow Rate FiO2 01/07/20 10:22 Room Air 01/06/20 19:22 98.1 123 18 122/77 (92) 01/06/20 14:40 97 Laboratory Data Labs 24H Laboratory Tests 2 01/06/20 13:32: Nucleated Red Blood Cells % (auto) 0.0, Anion Gap 7L, Glomerular Filtration Rate > 60.0, Calcium Level 9.6, Total Bilirubin 1.7H, Direct Bilirubin 0.5H, Aspartate Amino Transf (AST/SGOT) 16, Alanine Aminotransferase (ALT/SGPT) 25, Alkaline Phosphatase 127H, Total Protein 7.7, Albumin 4.2, Albumin/Globulin Ratio 1.20, Thyroid Stimulating Hormone (TSH) 1.020, Salicylates Level 3.1L, Acetaminophen Level < 2.0L, Ethyl Alcohol Level < 0.003 01/06/20 14:48: Urine Opiates Screen NEGATIVE, Urine Methadone Screen NEGATIVE, Urine Barbitu rates Screen NEGATIVE, Urine Phencyclidine Screen NEGATIVE, Urine Amphetamines Screen NEGATIVE, Urine Benzodiazepines Screen NEGATIVE, Urine Cocaine Metabolite Screen NEGATIVE, Urine Cannabinoids Screen POSITIVEH CBC/BMP Laboratory Tests 01/06/20 13:32 Assessment/Plan Mr. Kaufman is a 34-year-old male who is admitted to the [facility] with diagnoses of a deteriorating mental health status 2/2 schizophrenia. The exam is somewhat limited as the patient is slightly suspicious of me. When asked Mr. Kaufman stated that he is here because of the pins in his head. He reported that they have been there for very long time now. He is also concerned as he has what he s tates is a 'pore infection'; he points to what appears to be a folliculitis on bilateral arms. He is also very worried that the pore infection has spread to his cheek and jaw. He mentions that someone has told him that the infection in his mouth could spread to his heart and kill him. I gather that he has very poor dentition. There are several rounded teeth on the left side of the mouth; he denies receiving any treatment or follow-up outpatient. #1. Schizophrenia. Management per psychiatry. #2. Dental caries. Signs of inflammation/infection. Start Pen-VK 4 times daily. Will need dental follow-up on discharge; coordinate with campus recruiting coordinator. #3. Folliculitis. Start mupirocin. Patient advised not to pick at the wounds. Medicine will sign off on this patient at this time. Please feel free to re- consult as needed. Plan / VTE VTE Prophylaxis Ordered?: No GILMER FROST PA-C Jan 07, 2020 12:59
[2020-01-07] MEDS: MUPIROCIN 2% OINT 22 GM TUBE TOP SCH ×2 (13:24→21:00)
[2020-01-07] MEDS: PENICILLIN V POTASSIUM 500 MG TAB PO SCH ×3 (13:56→21:53)
[2020-01-07 16:23] VITALS: BP 121/66
--- NOTE | 2020-01-07 21:12 | MHHPE ---
DATE OF ADMISSION: 01/06/2020 DATE OF SERVICE: 01/07/2020 VITAL SIGNS: Blood pressure 122/77, pulse 123, temperature 98.1. It should be noted that the vital signs are from last evening. CHIEF COMPLAINT: Says feels okay. SUBJECTIVE: He is 34 years old. He is seen in the presence of staff. He has a long history of psychosis, traumatic brain injury. He has had two hospitalizations here in the past, most recent one was in November of this year. I had seen him for the first time at the clinic yesterday, the patient was floridly psychotic, deluded, responding to internal stimuli, quite agitated, particularly verbally, please refer to my note from yesterday for details related to the circumstances of the admission, including past history. He has no social support. He was unable to indicate how he had gotten to the clinic. He has tended to walk around town, and I understand from his therapist that the patient has hitchhiked around the country. Quite paranoid that there is a "chip in his brain." He hears voices, female voice somehow attached to the chip itself. There are other voices, both male and female that he responds to. The police were called to bring him to the hospital when he was at the clinic. He went with them calmly but I understand that once he got to the hospital that he became quite agitated, was in restraints and was given Haldol 5 mg intramuscular, Ativan 2 mg intramuscular as well, and that was effective. He was sedated and less agitated. Today, he says that he slept well but does not offer any other information. He responded briefly to a couple of questions asked and says has been doing okay. PAST PSYCHIATRIC HISTORY/BACKGROUND HISTORY: Please refer to the previous summaries. He was seen by Dr. Young when he was admitted in November of this year. MENTAL STATUS EXAMINATION: He is neat. Guarded, also gives the impression that he does not wish to engage. No agitation. No psychomotor retardation as such, gives only one word answers to a couple of questions and lies down and then not answer any. Displays poverty of speech with restricted affect. At present, does not appear to be internally preoccupied. Does not indicate that he has any wishes to harm himself or anyone else. No overt delusions are elicited, but this is a function of a limited examination and his difficulties engaging. No fluctuation of consciousness. He appears alert. He is oriented to place, in that he said that he was in the hospital, also oriented to person, but I am unaware if he is oriented to time. His judgment and insight remain quite compromised. ASSESSMENT: 1. Other schizophrenia spectrum and related disorders. 2. 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 3. Traumatic brain injury. 4. Poor social supports. 5. Cannabis use disorder. He has a history of psychosis and I understand that it has been the case after the head injury about 8 years ago, details of the head injury are not very clear. He has been floridly psychotic, has no social supports that I am aware of. He has not been on any medications. His judgment and insight are quite compromised. They interfere with his ability to maintain himself, which endangers him and given his agitation, endangers others as well. PLAN: He is admitted to the inpatient psychiatric unit. He required restraints and intramuscular injections for antiagitation medications given his level of agitation, this was yesterday. We will look at obtaining collateral information. He will receive a medicine consultation if indicated. I would suggest starting him on Abilify orally and I would suggest considering an intramuscular antipsychotic, such as Abilify Maintena or Aristada, which is aripiprazole intramuscular, as the patient requires being on an antipsychotic. We also need exploring matters related to a residence and setting him up with services, including case management. I would anticipate at least a 7 day stay given the patient's intensity of symptoms and his very poor judgment. There may also be an argument for treatment over objection as well, given the patient's history and florid psychosis with a history of agitation. Further recommendations will be made depending on the clinical picture. He will be seeing the assigned psychiatrist tomorrow.
[2020-01-07] MEDS: traZODone 50 MG TAB PO PRN (21:53)
[2020-01-08 07:11] VITALS: BP 128/59
--- NOTE | 2020-01-08 09:15 | MHIPNPDOC ---
[facility] Progress Note Progress Note DATE OF SERVICE: 01/08/20 HISTORY: Per Dr. Saez: He is 34 years old. He is seen in the presence of staff. He has a long history of psychosis, traumatic brain injury. He has had two hospitalizations here in the past, most recent one was in November of this year. I had seen him for the first time at the clinic yesterday, the patient was floridly psychotic, deluded, responding to internal stimuli, quite agitated, particularly verbally, please refer to my note from yesterday for details related to the circumstances of the admission, including past history. He has no social support. He was unable to indicate how he had gotten to the clinic. He has tended to walk around town, and I understand from his therapist that the patient has hitchhiked around the country. Quite paranoid that there is a "chip in his brain." He hears voices, female voice somehow attached to the chip itself. There are other voices, both male and female that he responds to. The police were called to bring him to the hospital when he was at the clinic. He went with them calmly but I understand that once he got to the hospital that he became quite agitated, was in restraints and was given Haldol 5 mg intramuscular, Ativan 2 mg intramuscular as well, and that was effective. He was sedated and less agitated. Today, he says that he slept well but does not offer any other information. He responded briefly to a couple of questions asked and says has been doing okay. VITAL SIGNS: See below. NEW TEST RESULTS: See below. CURRENT MEDICATIONS: See below. MENTAL STATUS EXAMINATION: He is neat. Guarded, answers questions in "yes," "no" fashion. No agitation. No psychomotor retardation . Displays poverty of speech with restricted affect. At present, does not appear to be internally preoccupied. Denies wishes to harm himself or anyone else. No overt delusions are elicited. No fluctuation of consciousness. He appears alert. He is oriented to place, in that he said that he was in the hospital, also oriented to person, place, time. Denies AVH and paranoia. States he's a loner. His judgment and insight remain quite compromised. DIAGNOSES: 1. Other schizophrenia spectrum and related disorders. 2. 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 3. Traumatic brain injury. 4. Poor social supports. 5. Cannabis use disorder. ASSESSMENT:Pt seen and states that his mood is ok. States his abilify is beneficial. Speech remains non-spontaneous and answers questions in "yes," "no" fashion only. Denies he's going to groups and admits he's a loner when asked. States he slept well last night. He denies AVH and does not appear to be responding to internal stimuli. Denies paranoia today when asked. He denies SI/HI, hallucinations, delusions. States he's ready to go home soon. Pt feels safe here. MANAGEMENT PLAN: abilify 5mg qhs TIME SPENT:30 minutes. Vital Signs Vital Signs Date Time Temp Pulse Resp B/P (MAP) Pulse Ox O2 Delivery O2 Flow Rate FiO2 01/08/20 07:11 97.6 66 14 128/59 (82) 01/07/20 10:22 Room Air 01/06/20 14:40 97 Current Medications Current Medications Medications (Trade) Dose Ordered Sig/Cruzito Route PRN Reason Start Time Stop Time Status Last Admin Dose Admin Acetaminophen (Tylenol Tab) 650 mg Q6HP PRN PO HEADACHE or DISCOMFORT 01/06/20 17:45 Al Hydrox/Mg Hydrox/Simethicone (Mylanta) 30 ml Q4HP PRN PO HEARTBURN/INDIGESTION 01/06/20 17:45 Aripiprazole (AbiLIFY) 5 mg QHS PO 01/07/20 21:00 01/07/20 21:53 Home Med (Med Rec Complete!) ASDIRECTED XX 01/06/20 16:45 01/06/20 16:39 DC Magnesium Hydroxide (Milk Of Magnesia) 30 ml DAILYPRN PRN PO CONSTIPATION 01/06/20 17:45 Mupirocin (Bactroban 2% Ointment) apply to affected arms/sp... BID TOP 01/07/20 09:00 01/07/20 13:24 Olanzapine (ZyPREXA) 5 mg Q4HP PRN PO AGITATION 01/06/20 17:45 Penicillin V Potassium (Pen V K) 500 mg QID PO 01/07/20 13:00 01/07/20 21:53 Trazodone HCl (Desyrel) 50 mg QHSP PRN PO INSOMNIA 01/06/20 17:45 01/07/20 21:53 Allergies Coded Allergies: No Known Allergies (Unverified , 12/18/13) NABIL LEAVITT DO Jan 08, 2020 8:47 am
[2020-01-08] MEDS: PENICILLIN V POTASSIUM 500 MG TAB PO SCH ×4 (10:09→20:17)
[2020-01-08] MEDS: MUPIROCIN 2% OINT 22 GM TUBE TOP SCH ×2 (10:09→20:17)
[2020-01-08] MEDS: NICOTINE 21MG/24HR 1 EA TRANSDERMAL TD SCH (14:42)
[2020-01-08 16:19] VITALS: BP 134/64
[2020-01-08] MEDS: traZODone 50 MG TAB PO PRN (20:17)
[2020-01-09 06:38] VITALS: BP 137/70
[2020-01-09] MEDS: MUPIROCIN 2% OINT 22 GM TUBE TOP SCH ×2 (08:46→20:06)
[2020-01-09] MEDS: PENICILLIN V POTASSIUM 500 MG TAB PO SCH ×4 (08:47→20:06)
[2020-01-09] MEDS: NICOTINE 21MG/24HR 1 EA TRANSDERMAL TD SCH (08:47)
--- NOTE | 2020-01-09 09:06 | MHIPNPDOC ---
[facility] Progress Note Progress Note DATE OF SERVICE: 01/09/20 HISTORY: Per Dr. Saez: He is 34 years old. He is seen in the presence of staff. He has a long history of psychosis, traumatic brain injury. He has had two hospitalizations here in the past, most recent one was in November of this year. I had seen him for the first time at the clinic yesterday, the patient was floridly psychotic, deluded, responding to internal stimuli, quite agitated, particularly verbally, please refer to my note from yesterday for details related to the circumstances of the admission, including past history. He has no social support. He was unable to indicate how he had gotten to the clinic. He has tended to walk around town, and I understand from his therapist that the patient has hitchhiked around the country. Quite paranoid that there is a "chip in his brain." He hears voices, female voice somehow attached to the chip itself. There are other voices, both male and female that he responds to. The police were called to bring him to the hospital when he was at the clinic. He went with them calmly but I understand that once he got to the hospital that he became quite agitated, was in restraints and was given Haldol 5 mg intramuscular, Ativan 2 mg intramuscular as well, and that was effective. He was sedated and less agitated. Today, he says that he slept well but does not offer any other information. He responded briefly to a couple of questions asked and says has been doing okay. VITAL SIGNS: See below. NEW TEST RESULTS: See below. CURRENT MEDICATIONS: See below. MENTAL STATUS EXAMINATION: He is neat. Guarded, answers questions in more openly. No agitation. No psychomotor retardation . Improved poverty of speech. Affect is more euthymic. At present, does not appear to be internally preoccupied. Denies wishes to harm himself or anyone else. No overt delusions are elicited. No fluctuation of consciousness. He appears alert. He is oriented to place, in that he said that he was in the hospital, also oriented to person, place, time. Denies AVH and paranoia. States he's a loner. His judgment and insight are improving. DIAGNOSES: 1. Other schizophrenia spectrum and related disorders. 2. 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 3. Traumatic brain injury. 4. Poor social supports. 5. Cannabis use disorder. ASSESSMENT:Pt seen and states that his mood is "alright". States his abilify is beneficial and he's tolerating it well. Discussed starting abilify maintena with pt to aid him with med compliance and he is agreeable to taking it today. Med risks and benefits discussed. Speech is more spontaneous and answers questions more appropriately with the ability to state his thoughts and opinions openly. Denies he's going to groups as he's a loner when asked. States he slept well last night. He denies AVH and does not appear to be responding to internal stimuli. Denies paranoia. He denies SI/HI, hallucinations, delusions. States he's ready to go home soon. Pt feels safe here. MANAGEMENT PLAN: d/c oral abilify and give abilify maintena abilify maintena 400mg im today TIME SPENT:30 minutes. Vital Signs Vital Signs Date Time Temp Pulse Resp B/P (MAP) Pulse Ox O2 Delivery O2 Flow Rate FiO2 01/09/20 06:38 98.2 57 16 137/70 (92) Room Air 01/06/20 14:40 97 Current Medications Current Medications Medications (Trade) Dose Ordered Sig/Cruzito Route PRN Reason Start Time Stop Time Status Last Admin Dose Admin Acetaminophen (Tylenol Tab) 650 mg Q6HP PRN PO HEADACHE or DISCOMFORT 01/06/20 17:45 Al Hydrox/Mg Hydrox/Simethicone (Mylanta) 30 ml Q4HP PRN PO HEARTBURN/INDIGESTION 01/06/20 17:45 Aripiprazole (AbiLIFY) 5 mg QHS PO 01/07/20 21:00 01/08/20 20:17 Home Med (Med Rec Complete!) ASDIRECTED XX 01/06/20 16:45 01/06/20 16:39 DC Magnesium Hydroxide (Milk Of Magnesia) 30 ml DAILYPRN PRN PO CONSTIPATION 01/06/20 17:45 Mupirocin (Bactroban 2% Ointment) apply to affected arms/sp... BID TOP 01/07/20 09:00 01/09/20 08:46 Nicotine (Nicoderm Cq 21mg) 1 patch DAILY TD 01/08/20 09:00 01/09/20 08:47 Olanzapine (ZyPREXA) 5 mg Q4HP PRN PO AGITATION 01/06/20 17:45 Penicillin V Potassium (Pen V K) 500 mg QID PO 01/07/20 13:00 01/09/20 08:47 Trazodone HCl (Desyrel) 50 mg QHSP PRN PO INSOMNIA 01/06/20 17:45 01/08/20 20:17 Allergies Coded Allergies: No Known Allergies (Unverified , 12/18/13) NABIL LEAVITT DO Jan 09, 2020 9:06 am
[2020-01-09] MEDS ORDERED: ARIPiprazole MONOHYDRATE 400 MG INJ (ABILIFY)(J0401) IM ONE (11:00)
[2020-01-09] MEDS ORDERED: BENZOCAINE 10% 9GM TUBE (ANBESOL) TOP PRN (13:00)
[2020-01-09 16:08] VITALS: BP 115/65
[2020-01-09] MEDS: traZODone 50 MG TAB PO PRN (20:06)
[2020-01-10 05:47] VITALS: BP 94/66
[2020-01-10] MEDS: NICOTINE 21MG/24HR 1 EA TRANSDERMAL TD SCH (08:05)
[2020-01-10] MEDS: MUPIROCIN 2% OINT 22 GM TUBE TOP SCH ×2 (08:06→20:07)
[2020-01-10] MEDS: PENICILLIN V POTASSIUM 500 MG TAB PO SCH ×4 (08:06→20:07)
[2020-01-10 16:05] VITALS: BP 122/60
[2020-01-10] MEDS: QUEtiapine FUMARATE 50 MG TAB PO PRN (21:04)
[2020-01-11 06:19] VITALS: BP 123/73
[2020-01-11] MEDS: MUPIROCIN 2% OINT 22 GM TUBE TOP SCH ×2 (08:06→20:12)
[2020-01-11] MEDS: PENICILLIN V POTASSIUM 500 MG TAB PO SCH ×4 (08:06→20:12)
[2020-01-11] MEDS: NICOTINE 21MG/24HR 1 EA TRANSDERMAL TD SCH (08:07)
--- NOTE | 2020-01-11 08:49 | MHIPN ---
DATE OF SERVICE: 01/10/2020 The patient today states "all is good." However, when I asked him, he says that he is hearing voices and that he hears them constantly. I asked him the content and he said "I try to ignore them." He says that he did sleep good last night, however. MENTAL STATUS EXAM: The patient is alert and oriented times three. Eye contact is fair. Psychomotor activity is decreased. There is no formal thought disorder noted. Mood is "all good," Affect is flat. He is having auditory hallucinations. He is not suicidal or homicidal. Concentration fair. Insight and judgment is poor. DIAGNOSIS: Schizophrenia. Traumatic brain injury. TREATMENT PLAN: At this point, the patient continues to be psychotic. We will continue to monitor the patient for further clinical response to his medications. He was just given Abilify Maintena. KEENAN
[2020-01-11 16:16] VITALS: BP 119/60
[2020-01-11] MEDS: QUEtiapine FUMARATE 50 MG TAB PO PRN (20:12)
[2020-01-12 06:12] VITALS: BP 111/59
[2020-01-12] MEDS: NICOTINE 21MG/24HR 1 EA TRANSDERMAL TD SCH (08:24)
[2020-01-12] MEDS: PENICILLIN V POTASSIUM 500 MG TAB PO SCH (08:24)
[2020-01-12] MEDS: MUPIROCIN 2% OINT 22 GM TUBE TOP SCH (08:25)
[2020-01-12] MEDS ORDERED: ABIL1INJ2 IM (09:20)
[2020-01-12] MEDS ORDERED: QUET5TAB PO (09:20)
--- NOTE | 2020-01-12 09:21 | MHDSPDOC ---
[facility] Discharge Summary Discharge Summary DATE OF ADMISSION: Jan 06, 2020 at 5:35 pm DATE OF DISCHARGE: Jan 12, 2020 DISCHARGE DIAGNOSES: 1. Other schizophrenia spectrum and related disorders. 2. 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 3. Traumatic brain injury. 4. Poor social supports. 5. Cannabis use disorder. REASON FOR ADMISSION: Per Dr. Saez: He is 34 years old. He is seen in the presence of staff. He has a long history of psychosis, traumatic brain injury. He has had two hospitalizations here in the past, most recent one was in November of this year. I had seen him for the first time at the clinic yesterday, the patient was floridly psychotic, deluded, responding to internal stimuli, quite agitated, particularly verbally, please refer to my note from yesterday for details related to the circumstances of the admission, including past history. He has no social support. He was unable to indicate how he had gotten to the clinic. He has tended to walk around town, and I understand from his therapist that the patient has hitchhiked around the country. Quite paranoid that there is a "chip in his brain." He hears voices, female voice somehow attached to the chip itself. There are other voices, both male and female that he responds to. The police were called to bring him to the hospital when he was at the clinic. He went with them calmly but I understand that once he got to the hospital that he became quite agitated, was in restraints and was given Haldol 5 mg intramuscular, Ativan 2 mg intramuscular as well, and that was effective. He was sedated and less agitated. Today, he says that he slept well but does not offer any other information. He responded briefly to a couple of questions asked and says has been doing okay. CONSULTANTS INVOLVED:none TREATMENT AND PROGRESS ON THE UNIT : Pt was admitted to [facility], seen for psychiatric assessment and started on abilify 5mg qhs that he tolerated well and found beneficial so he was given abilify maintena for treatment and med compliance that he tolerated well and found beneficial. His oral abilify was discontinued once abilify maintena given. He was provided seroquel 50mg qhs prn insomnia. Pt found his medications beneficial and tolerated them well. He did not attend groups daily during his stay as he preferred to be alone due to people making him anxious. His symptoms improved with treatment. On day of discharge he denied depression, anxiety, insomnia, SI/HI, delusions. He endorsed minor AH that were non-command and "in the background" so that he could not understand what they were saying. He appeared at his baseline status. He was discharged home with follow-up at [facility] with Dr. Saez. He felt safe for discharge. DISCHARGE ASSESSMENT: Pt seen and states that his mood is "good". States his abilify maintena is beneficial and he's tolerating it well. Speech is more spontaneous and answers questions more appropriately with the ability to state his thoughts and opinions openly. Denies he's going to groups as people make him anxious and he prefers to be alone. States he slept well last night. He endorses minor AH that were non-command and "in the background" so that he could not understand what they were saying. He appeared at his baseline status. He does not appear to be responding to internal stimuli and his attention is good. Denies paranoia. He denies depression, anxiety, insomnia, SI/HI, visual hallucinations, delusions. States he feels safe to go home. States his mother lives close to him and is supportive of him and checks on him from time to time. MENTAL STATUS EXAMINATION ON DISCHARGE: He is neat. He is cooperative and answers questions in more openly. No agitation. No psychomotor retardation . Improved poverty of speech. Affect is euthymic. At present, does not appear to be internally preoccupied. Denies wishes to harm himself or anyone else. No overt delusions are elicited. No fluctuation of consciousness. He appears alert. He is oriented to place, in that he said that he was in the hospital, also oriented to person, place, time. Endorses AH that are "in the background" and he cannot make out what they're saying. He denies paranoia. He appears at his baseline status. His judgment and insight are fair to good. MEDICATIONS ON DISCHARGE: abilify maintena 400mg im qmonthly seroquel 50mg qhs prn insomnia PLAN/FOLLOWUP ARRANGEMENTS: D/c home with follow-up at [facility] with Dr. Saez. The amount of time spent in the coordination of care for this patient was approximately 30 minutes. Vital Signs/I&Os Vital Signs Date Time Temp Pulse Resp B/P (MAP) Pulse Ox O2 Delivery O2 Flow Rate FiO2 01/12/20 06:12 97.1 57 16 111/59 (76) 01/09/20 06:38 Room Air 01/06/20 14:40 97 Medications Scheduled PRN Sumatriptan Succinate (Sumatriptan Succinate) 100 Mg Tablet, 100 MG PO A SDIRECTED PRN for MIGRAINE, (Reported) may repeat in 2 hours; do not exceed 200 mg in 24 hours Allergies Coded Allergies: No Known Allergies (Unverified , 12/18/13) NABIL LEAVITT DO Jan 12, 2020 9:21 am
== END 2020-01-12 12:06 | disposition home or self-care (01) | DRG 751 ==
LOC: M ED 12:13 → M ED INP 17:35 → M PSY 18:20
PROVIDERS: ADMIT Psychiatry & Neurology Psychiatry; ATTEND Psychiatry & Neurology Psychiatry
DX: F29 Unspecified psychosis not due to a substance or known physiological condition (principal); F12.90 Cannabis use, unspecified, uncomplicated

== ENCOUNTER 2020-01-25 18:53 | Emergency (ER) | payer MEDICAID, OTHER ==
[~2020-01-25] VITALS: Ht 185.4 cm; Wt 81.8 kg
[~2020-01-25 18:53] MED LIST changes: +ABIL1INJ2 IM; +QUET5TAB PO; +SUMA100T2 PO
[2020-01-25] MEDS ORDERED: GLUCAGON FOR INJ 1 MG VIAL (J1610) IV STA ×2 (19:24→20:08)
[2020-01-25 20:10] VITALS: BP 126/75
== END 2020-01-25 20:49 | disposition home or self-care (01) ==
LOC: EDBD 18:53 → EDSEX 18:53 → M ED 18:53
DX: R09.89 Other specified symptoms and signs involving the circulatory and respiratory systems (principal); T18.198A Other foreign object in esophagus causing other injury, initial encounter; X58.XXXA Exposure to other specified factors, initial encounter; Y92.89 Other specified places as the place of occurrence of the external cause; Z79.899 Other long term (current) drug therapy; F17.210 Nicotine dependence, cigarettes, uncomplicated
CPT/HCPCS: 96374; 96376; 99284; J1610

== ENCOUNTER 2023-10-08 16:17 | Inpatient (IN) | payer MEDICAID, OTHER ==
[~2023-10-08] VITALS: Ht 185.4 cm; Wt 83.2 kg
[~2023-10-08 16:17] MED LIST changes: +QUET50TA4 PO; -QUET5TAB PO
[2023-10-08 17:33] LABS: HEMATOCRIT 51.4 % (42.0-52.0); HEMOGLOBIN 18.2 g/dl (13.5-17.5); MEAN CORPUSCULAR HEMOGLOBIN 32.1 pg (27.0-33.0); MEAN CORPUSCULAR HGB CONC 35.4 g/dl (32.0-36.5); MEAN CORPUSCULAR VOLUME 90.7 fl (80.0-96.0); PLATELET COUNT, AUTOMATED 303 10^3/uL (150-450); RED BLOOD COUNT 5.67 10^6/uL (4.30-6.10); WHITE BLOOD COUNT 6.6 10^3/uL (4.0-10.0)
[2023-10-08 18:03] LABS: ETHYL ALCOHOL (ETHANOL) < 0.003 % (0.000-0.010)
[2023-10-08 18:05] LABS: ALBUMIN 4.9 G/DL (3.2-5.2); ALKALINE PHOSPHATASE 131 U/L (46-116); ALT/SGPT 22 U/L (7.0-40); AST/SGOT 19 U/L (<34); BILIRUBIN,DIRECT 0.7 MG/DL (<0.4); BILIRUBIN,TOTAL 4.6 MG/DL (0.3-1.2); BLOOD UREA NITROGEN 25 MG/DL (9-23); CARBON DIOXIDE LEVEL 24 MMOL/L (20-31); CHLORIDE LEVEL 100 MMOL/L (98-107); CREATININE FOR GFR 0.87 MG/DL (0.70-1.30); GLOMERULAR FILTRATION RATE > 60.0 (>60); GLUCOSE, FASTING 92 MG/DL (60-100); POTASSIUM SERUM 4.1 MMOL/L (3.5-5.1); SALICYLATE LEVEL < 3.0 MG/DL (<30); SODIUM LEVEL 136 MMOL/L (136-145); TOTAL PROTEIN 8.4 G/DL (5.7-8.2)
[2023-10-08 18:07] LABS: THYROID STIMULATING HORMONE 2.994 uIU/ML (0.55-4.78)
[2023-10-08] MEDS ORDERED: HOME MED LIST COMPLETE! XX SCH (22:25)
[2023-10-08 23:33] LABS: BARBITURATES URINE NEGATIVE (NEGATIVE); BENZODIAZEPINES URINE NEGATIVE (NEGATIVE); COCAINE METABOLITE URINE NEGATIVE (NEGATIVE); METHADONE URINE NEGATIVE (NEGATIVE); OPIATES URINE NEGATIVE (NEGATIVE); PHENCYCLIDINE URINE NEGATIVE (NEGATIVE)
[2023-10-08 23:35] LABS: AMPHETAMINES LEVEL URINE POSITIVE (NEGATIVE); CANNABINOIDS URINE POSITIVE (NEGATIVE)
[2023-10-09] MEDS ORDERED: diphenhydrAMINE 25MG CAP PO PRN (14:45)
[2023-10-09] MEDS ORDERED: MAALOX 30 ML SUSP *UDC PO PRN (14:45)
[2023-10-09] MEDS ORDERED: MOM 30ML SUSPENSION UDC PO PRN (14:45)
[2023-10-09] MEDS ORDERED: traZODone 50 MG TAB PO PRN (14:45)
[2023-10-09] MEDS ORDERED: ACETAMINOPHEN TAB 650MG DOSE (2X325MG) PO PRN (14:45)
[2023-10-09 17:32] VITALS: BP 109/73; TEMP 96.8; O2SAT 99
[2023-10-09] MEDS: IBUPROFEN 400MG TAB PO PRN (20:14)
[2023-10-10 06:46] VITALS: BP 99/61; TEMP 96.9; O2SAT 98
[2023-10-10] MEDS ORDERED: INFLUENZA QUADRIVALENT PF VACCINE 0.5ML SYRINGE IM.IMMUN ONE (10:00)
[2023-10-10] MEDS: OLANZapine 5 MG TAB PO SCH ×2 (10:12→21:00)
[2023-10-10 18:37] VITALS: BP 106/57; TEMP 96.8; O2SAT 97
[2023-10-11 06:32] VITALS: BP 117/55; TEMP 98.4; O2SAT 98
[2023-10-11] MEDS: OLANZapine 5 MG TAB PO SCH ×2 (08:59→21:00)
[2023-10-11 18:41] VITALS: BP 108/58; TEMP 97.6; O2SAT 97
[2023-10-12] MEDS: OLANZapine 5 MG TAB PO SCH ×2 (09:00→20:25)
[2023-10-12] MEDS: IBUPROFEN 400MG TAB PO PRN (20:25)
[2023-10-13 06:27] VITALS: BP 90/59; TEMP 97.8; O2SAT 100
[2023-10-13] MEDS: OLANZapine 5 MG TAB PO SCH ×2 (08:31→20:50)
[2023-10-14] MEDS: OLANZapine 5 MG TAB PO SCH ×2 (08:22→20:55)
[2023-10-14 09:00] VITALS: BP 90/59; TEMP 97.8; O2SAT 100
[2023-10-14 21:00] VITALS: BP 90/59; TEMP 97.8
[2023-10-14] MEDS: IBUPROFEN 400MG TAB PO PRN (21:09)
[2023-10-15 06:41] VITALS: BP 111/60; TEMP 98.1; O2SAT 96
[2023-10-15] MEDS: OLANZapine 5 MG TAB PO SCH ×2 (08:33→20:40)
[2023-10-15] MEDS: IBUPROFEN 400MG TAB PO PRN (18:51)
[2023-10-15 19:23] VITALS: BP 136/74; TEMP 97.9; O2SAT 96
[2023-10-16 06:23] VITALS: BP 112/63; TEMP 97.8; O2SAT 96
[2023-10-16] MEDS: OLANZapine 5 MG TAB PO SCH ×2 (09:00→20:36)
[2023-10-16 17:41] VITALS: BP 135/75; TEMP 97.5; O2SAT 97
[2023-10-16] MEDS: IBUPROFEN 400MG TAB PO PRN (20:35)
[2023-10-17 06:17] VITALS: BP 128/65; TEMP 98.8; O2SAT 99
[2023-10-17] MEDS: OLANZapine 5 MG TAB PO SCH ×2 (09:00→21:00)
[2023-10-17] MEDS: IBUPROFEN 400MG TAB PO PRN ×2 (15:30→22:31)
[2023-10-17 18:43] VITALS: BP 132/58; TEMP 97.1; O2SAT 98
[2023-10-18] MEDS: OLANZapine 5 MG TAB PO SCH ×2 (08:36→20:41)
[2023-10-19] MEDS: OLANZapine 5 MG TAB PO SCH (08:49)
[2023-10-19] MEDS: IBUPROFEN 400MG TAB PO PRN (10:15)
== END 2023-10-19 14:40 | disposition home or self-care (01) | DRG 750 ==
LOC: M ED 16:17 → M ED INP 10-09 14:44 → M PSY 10-09 17:23
PROVIDERS: ADMIT Student in an Organized Health Care Education/Training Program; ATTEND Student in an Organized Health Care Education/Training Program
DX: F20.9 Schizophrenia, unspecified (principal); F15.10 Other stimulant abuse, uncomplicated; Z20.822 Contact with and (suspected) exposure to COVID-19

== ENCOUNTER 2023-10-24 16:10 | Emergency (ER) | payer OTHER ==
[~2023-10-24] VITALS: Ht 185.4 cm; Wt 95.8 kg
[2023-10-24 16:10] VITALS: BP 120/78; TEMP 96.2; O2SAT 97
== END 2023-10-24 17:02 | disposition left against medical advice (07) ==
LOC: M ED 16:10
DX: F20.0 Paranoid schizophrenia (principal); F17.200 Nicotine dependence, unspecified, uncomplicated; F12.10 Cannabis abuse, uncomplicated; F10.10 Alcohol abuse, uncomplicated; Z53.9 Procedure and treatment not carried out, unspecified reason